=== PATIENT | female | born 1975 | race Native Hawaiian/Other Pacific Islander ===

== ENCOUNTER 2017-07-04 01:26 | Emergency (ER) | payer OTHER ==
[2017-07-04 01:27] VITALS: BMI 32.4
[2017-07-04 01:33] VITALS: BP 109/69; PULSE 86; RESP 20; TEMP 98; O2SAT 99
[2017-07-04] MEDS ORDERED: Tetanus/Diphtheria Toxoids 0.5 ml Syringe IM ONE ×2 (01:45→01:51)
--- NOTE | 2017-07-04 01:58 | C.PDOC ---
History Of Present Illness 41 year old female, who is a [employer] employee, presents to the ED for evaluation after she was scratched by a patient while at work earlier today. Patient reports she sustained an abrasion to her right hand and scrapes to her left hand. Patient is unsure of her Tetanus immunization status. Patient denies any active bleeding at this time. Time Seen by Provider: 07/04/17 01:34 Chief Complaint (Nursing): Abnormal Skin Integrity History Per: Patient History/Exam Limitations: no limitations Onset/Duration Of Symptoms: Hrs Current Symptoms Are (Timing): Still Present Location Of Injury: Right: Hand, Left: Hand Quality Of Symptoms: denies: Painful, Swollen, Draining Additional History Per: Patient Past Medical History Reviewed: Historical Data, Nursing Documentation, Vital Signs Vital Signs: Last Vital Signs Temp 98 F 07/04/17 01:31 Pulse 86 07/04/17 01:31 Resp 20 07/04/17 01:31 BP 109/69 07/04/17 01:31 Pulse Ox 99 07/04/17 04:51 - Medical History PMH: Anemia (w/ blood transfusion), HTN Surgical History: No Surg Hx - [facility] Procedures APPLICATION OF SPLINT (04/11/14) D & C NEC (12/31/13) PACKED CELL TRANSFUSION (12/20/13) Family History: States: Unknown Family Hx - Social History Hx Tobacco Use: No Hx Alcohol Use: No Hx Substance Use: No - Immunization History Hx Tetanus Toxoid Vaccination: No Hx Influenza Vaccination: No Hx Pneumococcal Vaccination: No Review Of Systems Skin: Positive for: Other (abrasions to right hand, scrapes to left hand. no active bleeding ) Physical Exam - Physical Exam Appears: Non-toxic, No Acute Distress Skin: Normal Color, Warm, Dry, Other (superficial punctate abrasion to base of dorsal aspect of right hand. no erythema, no hematoma, or active bleeding. Superficial erythema and excoriations to left hand ) Head: Atraumatic, Normacephalic Eye(s): bilateral: Normal Inspection Oral Mucosa: Moist Chest: No Tenderness Extremity: Normal ROM, No Tenderness, Capillary Refill (less than 2 seconds ), No Deformity, No Swelling Neurological/Psych: Oriented x3, Normal Speech, Normal Cognition Gait: Steady ED Course And Treatment O2 Sat by Pulse Oximetry: 99 (on RA) Pulse Ox Interpretation: Normal Progress Note: Tetanus IM administered. On reassessment, patient is resting comfortably, showing no signs of distress, and is stable for discharge. Patient is advised to follow up with the Employee Health Department and her PMD within 1 -2 days for further evaluation. Disposition Counseled Patient/Family Regarding: Diagnosis, Need For Followup, Rx Given - Disposition Disposition: HOME/ ROUTINE Disposition Time: 01:58 Condition: STABLE Additional Instructions: Apply bacitracin oint to area Please follow up with PMD Return to ER if worse Instructions: Abrasion (ED) Forms: [employer] ([place]) - Clinical Impression Clinical Impression: Abrasion - PA / [employer] / Resident Statement MD/DO has reviewed & agrees with the documentation as recorded. - Scribe Statement The provider has reviewed the documentation as recorded by the Scribe (Chani Jones) All medical record entries made by the Scribe were at my direction and personally dictated by me. I have reviewed the chart and agree that the record accurately reflects my personal performance of the history, physical exam, medical decision making, and the department course for this patient. I have also personally directed, reviewed, and agree with the discharge instructions and disposition.
== END 2017-07-04 02:10 | disposition home or self-care (01) ==
LOC: C.ER 01:26
DX: S60.511A Abrasion of right hand, initial encounter (principal); W50.4XXA Accidental scratch by another person, initial encounter; Y92.239 Unspecified place in hospital as the place of occurrence of the external cause; Z23 Encounter for immunization

== ENCOUNTER 2018-09-24 07:55 | Outpatient (CLI) | payer OTHER | END 2018-09-24 07:56 | disposition home or self-care (01) | LOC: C.MRIC 07:55 ==

== ENCOUNTER 2018-09-24 08:01 | Outpatient (CLI) | payer OTHER | END 2018-09-24 08:02 | disposition home or self-care (01) | LOC: C.LAB 08:01 ==

== ENCOUNTER 2018-10-10 11:03 | Day surgery (SDC) | payer OTHER ==
[2018-09-29 07:22] VITALS: BMI 33.2
[2018-10-10 12:08] VITALS: PULSE 76; RESP 18; TEMP 98; O2SAT 99
[2018-10-10] MEDS ORDERED: Bupivacaine HCl 0.5% PF (10 ml) Inj ONE ×3 (12:19→12:30)
[2018-10-10] MEDS ORDERED: Lidocaine 2% MPF (5 ml) Inj ONE ×3 (12:19→12:30)
[2018-10-10] MEDS ORDERED: Midazolam 2 MG/2 ML VIAL ONE (12:31)
[2018-10-10] MEDS ORDERED: Propofol 10 mg/ml Inj (20 ML) ONE (12:50)
[2018-10-10] MEDS ORDERED: Lidocaine Hydrochloride 5 ML INJ ONE (12:57)
[2018-10-10] MEDS ORDERED: Oxycodone/Acetaminophen 5/325 mg Tab PO PRN ×2 (13:23)
--- NOTE | 2018-10-10 13:28 | PCM.SURG1 ---
Surgeon's Initial Post Op Note - Surgeon's Notes Surgeon: gonzalo Bach Hotel Manager: radhika bach, pgy1 Type of Anesthesia: IV Sedation, Local Anesthesia Administered By: Dr. Scott Pre-Operative Diagnosis: left achilles tendinitis Operative Findings: see dictation. injectibles: 10 cc of .5% marcaine plain and 2% lidocaine plain. materials- 4-0 nylon Post-Operative Diagnosis: same Operation Performed: left achilles percutaneous tenotomy Specimen/Specimens Removed: none Estimated Blood Loss: EBL {In ML}: 1 Blood Products Given: N/A Drains Used: No Drains Post-Op Condition: Good Date of Surgery/Procedure: 10/10/18 Time of Surgery/Procedure: 13:28
[2018-10-10] MEDS ORDERED: Lactated Ringer's 1,000 ML IV SCH (13:30)
[2018-10-10 14:43] VITALS: BP 123/69
--- NOTE | 2018-10-11 01:20 | OP ---
PROCEDURE DATE: 10/10/2018 SURGEON: Mau Bach DPM LINE COOK: Philly Toscano, PGY-1 ANESTHESIOLOGIST: Agus Scott MD ANESTHESIA: IV sedation with local anesthesia. PREOPERATIVE DIAGNOSIS: Left foot Achilles tendinitis. POSTOPERATIVE DIAGNOSIS: Left foot Achilles tendinitis. NAME OF PROCEDURE: Left foot percutaneous tenotomy with ultrasound-guided debridement of Achilles tendon with injection of platelet-rich plasma. INDICATION: The patient is a 42-year-old female with the above diagnosis. The patient has exhausted all conservative treatments at this time and now requires surgical intervention. The patient signed the consent after careful explanation of risks, benefits and complications and alternatives for the surgical procedures. No guarantees were given nor implied. NPO status was confirmed prior to taking the patient to the OR. PREPARATION: The patient was brought into the operating room and placed on the operating room table in a prone position. Ankle tourniquet was not utilized for this procedure. After induction of IV sedation, the patient received a total of 10 mL of 1:1 mixture of 0.5% Marcaine and 2% lidocaine plain in a local block type fashion to the left ankle. Once local anesthesia was achieved, the left ankle was then prepped and draped in a normal sterile manner, and the procedure began. DESCRIPTION OF PROCEDURE: A sterile sleeve was placed over the ultrasound transducer, and diagnostic ultrasound was performed. Anatomy of the Achilles tendon was then identified. Using a #11 blade, a stab incision was made at the medial aspect of the Achilles tendon insertion, and a track was made down to the tendon. The TX1 handpiece was then introduced. Once the tip was located in the hypoechoic lesion, the foot pedal was pressed, and the area was debrided in. The tissue was excised. A total of three-minute ultrasonic energy was delivered. Following the procedure, the skin edge of this incision was reapproximated using 4-0 nylon. Next, 3 mL of PRP was injected into the distal aspect of the Achilles tendon. The area was then dressed with Betadine Adaptic 4x4 gauze and Edmond. POSTOPERATIVE CONDITION: The patient tolerated the anesthesia and procedure well and was escorted to the recovery room with vital signs stable and neurovascular status intact to the left foot. The patient will ambulate with CAM walker and crutches being nonweightbearing to the left lower extremity. The patient will follow up with Dr. Bach in the office with in a week. PHILLY BACH Mau Bach DPM
== END 2018-10-10 14:15 | disposition home or self-care (01) ==
LOC: C.SDS 11:03
PROVIDERS: ATTEND Podiatrist Foot & Ankle Surgery
DX: M76.62 Achilles tendinitis, left leg (principal); I10 Essential (primary) hypertension
CPT/HCPCS: 27605; 97116; 97161; G8978; G8979; G8980; J2250; J2704